=== PATIENT | male | born 1995 | race Caucasian/White ===

== ENCOUNTER 2016-10-13 13:22 | Emergency (ER) | payer MEDICAID, OTHER ==
--- OUTSIDE RECORDS SUMMARY | 2016-10-17 07:31 | XMS REPORT ---
Author RUPA Randolph [employer] Address Unknown Phone Unavailable Care Team Providers Care Records Management Technician Name Role Phone RUPA PEREIRA CP Unavailable Allergies, Adverse Reactions, Alerts Substance Reaction Event Type N.K.D.A. Info Not Available Non Drug Allergy Problems Problem Type Condition Code Onset Dates Condition Status Assessment Laceration of scalp without foreign body, initial encounter S01.01XA Active Medications No Known Medications Procedures Procedure Coding System Code Date Office Visit, Est Pt., Level 3 CPT-4 64687 Mar 03, 2016 LACERATION >2CM CPT-4 07481 Mar 03, 2016 Vital Signs Date/Time: Mar 03, 2016 Cardiac Monitoring Heart Rate 102 bpm Weight 217.8 lbs Height 72.5 in BMI 29.13 Index Blood Pressure Diastolic 78 mmHg Blood Pressure Systolic 124 mmHg Results Name Result Date Reference Range Unit Abnormality Flag LACERATION REPAIR Summary Purpose eClinicalWorks Submission
== END 2016-10-13 14:19 | disposition left against medical advice (07) ==
LOC: ER 13:27
DX: S81.812A Laceration without foreign body, left lower leg, initial encounter (principal); X58.XXXA Exposure to other specified factors, initial encounter